=== PATIENT | female | born 1980 | race Caucasian/White ===

== ENCOUNTER 2017-03-21 12:04 | Inpatient (IN) | payer BC ==
[~2017-03-21] VITALS: Ht 167.6 cm; Wt 71.3 kg
[2017-03-21] MEDS ORDERED: PRENAT PO (12:16)
[2017-03-21] MEDS ORDERED: AMOX500T PO (12:16)
[2017-03-21] MEDS ORDERED: LABE100T39 PO (12:16)
[2017-03-21 12:17] VITALS: Ht 167.6 cm; Wt 71.3 kg
[2017-03-21 12:18] VITALS: BP 123/80; PULSE 75
[2017-03-21 14:00] LABS: ADD SCAN DIFF NO
[2017-03-21 14:02] LABS: BASOPHILS % 0.3 % (0.0-2.0); EOSINOPHILS % 0.6 % (0.0-7.0); HEMATOCRIT 34.7 % (37.0-47.0); HEMOGLOBIN 12.2 g/dl (12.0-16.0); LYMPHOCYTES # 1.4 10^3/ul (0.8-2.9); LYMPHOCYTES % 20.7 % (15.0-51.0); MEAN CORPUSCULAR HEMOGLOBIN 32.4 pg (29.0-33.0); MEAN CORPUSCULAR HGB CONC 35.2 g/dl (32.0-37.0); MEAN CORPUSCULAR VOLUME 92.3 fl (82.0-101.0); MEAN PLATELET VOLUME 9.7 fl (7.4-10.4); MONOCYTE # 0.4 10^3/ul (0.3-0.9); MONOCYTES % 6.6 % (0.0-11.0); NEUTROPHIL # 4.8 10^3/ul (1.6-7.5); NEUTROPHILS % 71.5 % (39.0-77.0); PLATELET COUNT 252 10^3/UL (140-415); RED BLOOD COUNT 3.76 10^6/ul (4.20-5.40); RED CELL DISTRIBUTION WIDTH 12.6 % (11.5-14.5); WHITE BLOOD COUNT 6.7 10^3/ul (4.8-10.8)
[2017-03-21 14:20] LABS: ALBUMIN 3.4 g/dl (3.3-4.9); BILIRUBIN,INDIRECT 0.4 mg/dl (0-1.1); BILIRUBIN,TOTAL 0.4 mg/dl (0.2-1.3); CALCIUM 9.2 mg/dl (8.4-10.2); CREATININE 0.55 mg/dl (0.44-1.00); POTASSIUM 4.4 mmol/L (3.5-5.1); TOTAL PROTEIN 6.8 g/dl (6.1-8.1); URIC ACID 5.2 mg/dl (3.1-7.9)
[2017-03-21] MEDS ORDERED: LIDOCAINE 1% (MPF) 30 ML INJ INJ PRN (17:30)
[2017-03-21] MEDS ORDERED: MISOPROSTOL 25 MCG CAPSULE PO PRN (17:30)
[2017-03-21] MEDS ORDERED: OXYTOCIN 30 UNITS/LR 500 ML IV SCH (17:30)
[2017-03-21] MEDS ORDERED: AMPICILLIN 2 GM/NS (PMX) 100 ML IV ONE (17:30)
[2017-03-21] MEDS ORDERED: CARBOPROST 250 MCG INJ IM PRN (17:30)
[2017-03-21] MEDS ORDERED: OXYTOCIN 30 UNITS/LR 500 ML IV PRN (17:30)
[2017-03-21] MEDS ORDERED: METHYLERGONOVINE 0.2 MG INJ IM PRN (17:30)
[2017-03-21] MEDS ORDERED: MISOPROSTOL 200 MCG TAB PR PRN (17:30)
[2017-03-21] MEDS ORDERED: LACTATED RINGER'S 1,000 ML IV PRN (17:30)
[2017-03-21] MEDS ORDERED: BUTORPHANOL 2 MG INJ IV PRN ×2 (17:30)
[2017-03-21] MEDS: LACTATED RINGER'S 1,000 ML IV SCH (18:33)
[2017-03-21 18:53] LABS: ADD SCAN DIFF NO
[2017-03-21 18:56] LABS: BASOPHILS % 0.1 % (0.0-2.0); EOSINOPHILS # 0.1 10^3/ul (0.0-0.5); EOSINOPHILS % 0.9 % (0.0-7.0); HEMATOCRIT 37.5 % (37.0-47.0); HEMOGLOBIN 12.5 g/dl (12.0-16.0); LYMPHOCYTES # 1.6 10^3/ul (0.8-2.9); LYMPHOCYTES % 22.4 % (15.0-51.0); MEAN CORPUSCULAR HEMOGLOBIN 31.3 pg (29.0-33.0); MEAN CORPUSCULAR HGB CONC 33.3 g/dl (32.0-37.0); MEAN PLATELET VOLUME 9.9 fl (7.4-10.4); MONOCYTE # 0.4 10^3/ul (0.3-0.9); MONOCYTES % 6.2 % (0.0-11.0); NEUTROPHILS % 70.3 % (39.0-77.0); PLATELET COUNT 248 10^3/UL (140-415); RED BLOOD COUNT 3.99 10^6/ul (4.20-5.40); WHITE BLOOD COUNT 7.1 10^3/ul (4.8-10.8)
[2017-03-21 19:11] LABS: INR 0.91; PARTIAL THROMBOPLASTIN TIME 25.8 Sec (25.0-35.0); PROTIME 12.3 Sec (12.2-14.2)
--- NOTE | 2017-03-21 20:02 | RADRPT ---
PROCEDURE: US OB. CLINICAL INDICATION: Chronic hypertension. TECHNIQUE: Multiple sonographic images of the pelvis were obtained. Transabdominal imaging only w as performed. The images were reviewed on a PACS workstation. COMPARISON: 03/18/2017. FINDINGS: Single live intrauterine is identified. Cardiac activity is present with 152 beats per mi nute. There is a vertex presentation. Measurements: BPD = 38 weeks 3 days. HC = 38 weeks 5 days. AC = 37 weeks 1 day. FL = 39 weeks 0 days. Estimated gestational age of approximately 38 weeks 2 days. The estimated date of delivery is 04/10/2017. The EFW = 3342 g which is at the 68 percentile. The placenta is the posterior fundal. There is no evidence for an abruption or placenta previa. There is a normal amount of amniotic fluid with an DOC = 18.76 cm. IMPRESSION: Single live intrauterine gestation of approximately 38 weeks 2 days. RPTAT: HMVK .Rudy Dietz MD, Date Time Electronically viewed and signed by .Rudy Dietz MD, on 03/21/2017 20:02 .K/
[2017-03-21] MEDS: MISOPROSTOL 25 MCG CAPSULE PO SCH (21:00)
[2017-03-21 22:02] LABS: ADD UMIC YES; URINE BILIRUBIN (Dip) NEGATIVE (NEGATIVE); URINE BLOOD (Dip) TRACE (NEGATIVE); URINE COLOR LT. YELLOW (YELLOW); URINE GLUCOSE (Dip) NEGATIVE (NEGATIVE); URINE KETONES (Dip) NEGATIVE (NEGATIVE); URINE LEUKOCYTE ESTERASE (Dip) NEGATIVE (NEGATIVE); URINE NITRITE (Dip) NEGATIVE (NEGATIVE); URINE TOTAL PROTEIN (Dip) NEGATIVE (NEGATIVE); URINE UROBILINOGEN (Dip) 1.0 E.U./dL (0.1-1.0)
[2017-03-21 22:30] LABS: SQUAMOUS EPITHELIAL CELL,UR MODERATE; URINE RBCS 0-2 /HPF (0)
[2017-03-21] MEDS: AMPICILLIN 1 GM/NS (PMX) 50 ML IV SCH (23:38)
[2017-03-22] MEDS: MISOPROSTOL 25 MCG CAPSULE PO SCH ×2 (01:07→05:00)
[2017-03-22] MEDS: LACTATED RINGER'S 1,000 ML IV SCH (02:22)
[2017-03-22] MEDS: AMPICILLIN 1 GM/NS (PMX) 50 ML IV SCH (02:52)
[2017-03-22] MEDS: OXYTOCIN 30 UNITS/LR 500 ML IV SCH ×2 (05:13→09:35)
--- NOTE | 2017-03-22 05:18 | LDN ---
Date/Time of Note Date/Time of Note DATE: 03/22/17 TIME: 05:15 Delivery Summary normal vaginal delivery Weeks of Gestation 38w1d Placenta Delivered: Spontaneously Meconium: none Episiotomy: No Perineal laceration: 2 Anesthesia type: Local Sponge & Needle done & correct: Yes All needle counts correct: Yes Any foreign bodies felt in the: No Problems: Infant Delivery Information Sex Sex: female Apgars 1 Minute: 8 5 Minute: 9 Suctioning Nose & mouth suctioned at bharti: Yes Delee suction performed: No Umbilical Cord Umbilical cord with: 3 Vessels Cord presentations: no nuchal cord Cord Blood was obtained: Yes Mother & Baby Disposition Disposition Mom & Baby to Maternity; Good: Yes Mom transferred to: Other () Baby to NICU: No YANET CHIU MD March 22, 2017 05:18
--- NOTE | 2017-03-22 05:32 | HP ---
Date/Time of Note Date/Time of Note DATE: 03/22/17 TIME: 05:21 OB - History Hx of Present Free Text/Dictation 36y,o was sent for induction of labor for superimposed preclmpsia with chonic hypertension on labetalol also recently treaed for uti with amoxicillin LFT abnormal [id number] ALT 186 cytotec is going merly used for induction of labor Chief Complaint: induction of labor Estimated Due Date: April 04, 2017 : 3 Para: 2 Spontaneous : 0 Therapeutic : 0 Care: Good Care Ultrasounds: Normal mid trimester US Obstetrical Complications: None, Pre-eclampsia, Other (chronic hypertension) Medical Complications: None Past Family/Social History * Past Medical, Surgical, Family and Obstetric Histories reviewed from chart. Blood Type: O+ Rubella: immune RPR/VDRL: Negative GBS Status: Negative HBsAG: Negative OB Admission Exam Vital Signs Vital Signs Vital Signs Date Time Temp Pulse Resp B/P Pulse Ox O2 Delivery O2 Flow Rate FiO2 03/21/17 12:18 97.7 75 123/80 Physical Exam HEENT: WNL Heart: Rhythm Normal Lungs: Clear, Equal Abdomen: WNL Extremities: Normal Reflexes: Normal Cervical Dilatation: other (o.5cm) Effacement: Other (40%) Station: -2 Membranes: Intact Amniotic Fluid: Unevaluable Heart Rate: 130's Accelerations: Accelerations Present Decelerations: No Decelerations Varibility: Moderate Contractions on Admission: < 5 Minutes Apart Intensity: Mild Last 72 hours Lab Results CBC & BMP 03/21/17 13:40 03/21/17 18:29 Liver Function Test 03/21/17 13:40 Alanine Aminotransferase (ALT/SGPT) 283 H Albumin 3.4 Alkaline Phosphatase 225 H Aspartate Amino Transf (AST/SGOT) 163 H Direct Bilirubin 0.00 Total Protein 6.8 OB Assessment/Plan Reason for admission: induction of labor Other Assessment: chronic hypertension , superimposed preeclampsia IUP 38w Plan: Induction Induction Method: other (cytotec) YANET CHIU MD March 22, 2017 05:31
[2017-03-22] MEDS ORDERED: BENZOCAINE 20% 56 ML SPRAY TOP PRN (06:30)
[2017-03-22] MEDS ORDERED: OXYCODONE/ASPIRIN (4.88/325) TAB PO PRN ×2 (06:30)
[2017-03-22] MEDS ORDERED: ZOLPIDEM 5 MG TAB PO PRN (06:30)
[2017-03-22] MEDS ORDERED: MISOPROSTOL 200 MCG TAB PR PRN (06:30)
[2017-03-22] MEDS ORDERED: METHYLERGONOVINE 0.2 MG INJ IM PRN (06:30)
[2017-03-22] MEDS ORDERED: LANOLIN 7 GM TUBE TOP PRN (06:30)
[2017-03-22] MEDS ORDERED: WITCH HAZEL/GLYCERIN PAD PR PRN (06:30)
[2017-03-22] MEDS ORDERED: OXYTOCIN 30 UNITS/LR 500 ML IV PRN (06:30)
[2017-03-22] MEDS ORDERED: CARBOPROST 250 MCG INJ IM PRN (06:30)
[2017-03-22] MEDS: IBUPROFEN 600 MG TAB PO SCH ×4 (07:14→23:38)
[2017-03-22 07:35] LABS: ADD SCAN DIFF NO
[2017-03-22 07:38] LABS: BASOPHILS % 0.2 % (0.0-2.0); EOSINOPHILS # 0.1 10^3/ul (0.0-0.5); EOSINOPHILS % 0.5 % (0.0-7.0); HEMATOCRIT 37.9 % (37.0-47.0); HEMOGLOBIN 12.4 g/dl (12.0-16.0); LYMPHOCYTES # 1.5 10^3/ul (0.8-2.9); LYMPHOCYTES % 11.8 % (15.0-51.0); MEAN CORPUSCULAR HEMOGLOBIN 30.9 pg (29.0-33.0); MEAN CORPUSCULAR HGB CONC 32.7 g/dl (32.0-37.0); MEAN CORPUSCULAR VOLUME 94.5 fl (82.0-101.0); MEAN PLATELET VOLUME 10.1 fl (7.4-10.4); MONOCYTE # 0.6 10^3/ul (0.3-0.9); MONOCYTES % 4.9 % (0.0-11.0); NEUTROPHIL # 10.2 10^3/ul (1.6-7.5); NEUTROPHILS % 82.2 % (39.0-77.0); PLATELET COUNT 251 10^3/UL (140-415); RED BLOOD COUNT 4.01 10^6/ul (4.20-5.40); RED CELL DISTRIBUTION WIDTH 12.7 % (11.5-14.5); WHITE BLOOD COUNT 12.4 10^3/ul (4.8-10.8)
[2017-03-22 07:55] LABS: INR 0.94; PARTIAL THROMBOPLASTIN TIME 25.9 Sec (25.0-35.0); PROTIME 12.6 Sec (12.2-14.2)
[2017-03-22 08:06] LABS: ALBUMIN 3.1 g/dl (3.3-4.9); ALBUMIN/GLOBULIN RATIO 0.91; BILIRUBIN,INDIRECT 0.5 mg/dl (0-1.1); BILIRUBIN,TOTAL 0.5 mg/dl (0.2-1.3); CALCIUM 9.2 mg/dl (8.4-10.2); CREATININE 0.53 mg/dl (0.44-1.00); POTASSIUM 3.8 mmol/L (3.5-5.1); TOTAL PROTEIN 6.5 g/dl (6.1-8.1); URIC ACID 5.6 mg/dl (3.1-7.9)
[2017-03-22 09:30] VITALS: BP 130/73; PULSE 57; RESP 18
[2017-03-22] MEDS: SENNA/DOCUSATE NA (8.6MG/50MG) TAB PO SCH ×2 (09:37→21:30)
[2017-03-22 12:50] VITALS: BP 146/67; PULSE 55; RESP 16
[2017-03-22 15:45] VITALS: BP 118/62; PULSE 55; RESP 16
[2017-03-22 20:05] VITALS: BP 112/63; PULSE 69; RESP 19
[2017-03-23 03:30] VITALS: BP 109/65; PULSE 68; RESP 19
[2017-03-23] MEDS: IBUPROFEN 600 MG TAB PO SCH ×4 (05:35→23:42)
[2017-03-23 08:00] VITALS: BP 126/80; PULSE 60; RESP 18
[2017-03-23 08:02] LABS: ADD SCAN DIFF NO
[2017-03-23 08:07] LABS: BASOPHILS % 0.2 % (0.0-2.0); EOSINOPHILS # 0.1 10^3/ul (0.0-0.5); HEMATOCRIT 35.3 % (37.0-47.0); HEMOGLOBIN 11.9 g/dl (12.0-16.0); LYMPHOCYTES # 2.3 10^3/ul (0.8-2.9); LYMPHOCYTES % 24.7 % (15.0-51.0); MEAN CORPUSCULAR HEMOGLOBIN 31.6 pg (29.0-33.0); MEAN CORPUSCULAR HGB CONC 33.7 g/dl (32.0-37.0); MEAN CORPUSCULAR VOLUME 93.6 fl (82.0-101.0); MEAN PLATELET VOLUME 10.1 fl (7.4-10.4); MONOCYTE # 0.5 10^3/ul (0.3-0.9); MONOCYTES % 5.6 % (0.0-11.0); NEUTROPHIL # 6.3 10^3/ul (1.6-7.5); NEUTROPHILS % 68.2 % (39.0-77.0); PLATELET COUNT 200 10^3/UL (140-415); RED BLOOD COUNT 3.77 10^6/ul (4.20-5.40); RED CELL DISTRIBUTION WIDTH 12.8 % (11.5-14.5); WHITE BLOOD COUNT 9.3 10^3/ul (4.8-10.8)
[2017-03-23] MEDS: SENNA/DOCUSATE NA (8.6MG/50MG) TAB PO SCH ×2 (09:20→21:04)
--- NOTE | 2017-03-23 09:38 | QN ---
Documentation Comment day 1 afebrile vitals stable with no elevated BP abdomen soft uterus firm lochia normal extremity normal Laboratory Tests Test 03/23/17 07:04 White Blood Count 9.310^3/ul Red Blood Count 3.7710^6/ul Hemoglobin 11.9g/dl Hematocrit 35.3% Mean Corpuscular Volume 93.6fl Mean Corpuscular Hemoglobin 31.6pg Mean Corpuscular Hemoglobin Concent 33.7g/dl Red Cell Distribution Width 12.8% Platelet Count 00734^3/UL Mean Platelet Volume 10.1fl Neutrophils % 68.2% Lymphocytes % 24.7% Monocytes % 5.6% Eosinophils % 1.0% Basophils % 0.2% Nucleated Red Blood Cells % 0.0/100WBC Neutrophils # 6.310^3/ul Lymphocytes # 2.310^3/ul Monocytes # 0.510^3/ul Eosinophils # 0.110^3/ul Basophils # 0.010^3/ul Nucleated Red Blood Cells # 0.010^3/ul Current Medications Medications (Trade) Dose Ordered Sig/Jesenia Route PRN Reason Start Time Stop Time Status Last Admin Dose Admin Lactated Ringer's 1,000 ml @ 125 mls/hr Q8H IV 03/21/17 17:13 03/22/17 06:29 DC 03/22/17 02:22 Ampicillin 100 ml @ 100 mls/hr ONCE ONCE IV 03/21/17 17:30 03/21/17 18:29 DC 03/21/17 19:00 Ampicillin (Ampicillin 1 Gm/ NS (Pmx)) 50 ml @ 100 mls/hr Q4H IV 03/21/17 21:30 03/22/17 06:29 DC 03/22/17 02:52 Misoprostol (Cytotec 25 Mcg Capsule) 50 mcg Q4 PRN PO LABOR INDUCTION 03/21/17 17:30 03/22/17 06:29 DC Butorphanol Tartrate (Stadol) 1 mg Q2H PRN IV PAIN 03/21/17 17:30 03/22/17 06:29 DC Butorphanol Tartrate (Stadol) 2 mg Q2H PRN IV PAIN 03/21/17 17:30 03/22/17 06:29 DC Lidocaine 30 ml 30 ml ONCE PRN INJ EPISIOTOMY/TEARING 03/21/17 17:30 03/22/17 06:29 DC Oxytocin/Lactated Ringer's 500 ml @ 125 mls/hr ONCE -MAY REPEAT X1 IV 03/21/17 17:30 03/22/17 06:29 DC 03/22/17 09:35 Oxytocin/Lactated Ringer's 500 ml @ 125 mls/hr ONCE IV 03/21/17 17:30 03/22/17 06:30 DC 03/22/17 05:25 Lactated Ringer's 1,000 ml @ 2,000 mls/hr Q30M PRN IV PRE-EPIDURAL BOLUS 03/21/17 17:30 03/22/17 06:30 DC Oxytocin/Lactated Ringer's 500 ml @ 0 mls/hr ONCE PRN IV For Hemorrhage Management 03/21/17 17:30 03/22/17 06:30 DC Methylergonovine Maleate (Methergine) 0.2 mg ONCE PRN IM VAGINAL BLEEDING 03/21/17 17:30 03/22/17 06:30 DC Carboprost Tromethamine (Hemabate) 250 mcg ONCE PRN IM VAGINAL BLEEDING 03/21/17 17:30 03/22/17 06:30 DC Misoprostol (Cytotec) 1,000 mcg ONCE PRN TX VAGINAL BLEEDING 03/21/17 17:30 03/22/17 06:30 DC Misoprostol (Cytotec 25 Mcg Capsule) 50 mcg Q4 PO 03/21/17 21:00 03/22/17 06:30 DC 03/22/17 01:07 Ibuprofen (Motrin) 600 mg Q6 PO 03/22/17 06:30 03/23/17 05:35 Oxycodone/Aspirin (Percodan) 1 tab Q3H PRN PO PAIN LEVEL 1-5 03/22/17 06:30 Oxycodone/Aspirin (Percodan) 2 tab Q3H PRN PO PAIN LEVEL 6-10 03/22/17 06:30 Zolpidem Tartrate (Ambien) 5 mg QHS PRN PO INSOMNIA 03/22/17 06:30 Senna/Docusate Sodium (Senokot-S) 1 tab BID PO 03/22/17 09:00 03/23/17 09:20 Witch Danielle/ Glycerin (Tucks Pads) 1 pad BEDSIDE MEDICATION PRN TX HEMORRHOID/EPISIOTMY PAIN 03/22/17 06:30 03/22/17 09:36 Benzocaine (Dermoplast Barrett) 1 spray BEDSIDE MEDICATION PRN TOP HEMORRHOID/EPISIOTMY PAIN 03/22/17 06:30 03/22/17 09:36 Lanolin (Dkv-U-Enpyna) 1 applic BEDSIDE MEDICATION PRN TOP BEDSIDE FOR SINTIA TO NIPPLES 03/22/17 06:30 03/22/17 09:37 Diphtheria/ Tetanus/Acell Pertussis 0.5 ml 0.5 ml ONCE ONCE IM* 03/24/17 09:00 03/24/17 09:01 Oxytocin/Lactated Ringer's 500 ml @ 0 mls/hr ONCE PRN IV For Hemorrhage Management 03/22/17 06:30 Methylergonovine Maleate (Methergine) 0.2 mg ONCE PRN IM VAGINAL BLEEDING 03/22/17 06:30 Carboprost Tromethamine (Hemabate) 250 mcg ONCE PRN IM VAGINAL BLEEDING 03/22/17 06:30 Misoprostol (Cytotec) 1,000 mcg ONCE PRN TX VAGINAL BLEEDING 03/22/17 06:30 YIN PATEL MD March 23, 2017 09:37
[2017-03-23 16:00] VITALS: BP 125/81; PULSE 62; RESP 20
[2017-03-23 18:30] VITALS: BP 135/81; PULSE 75; RESP 20
--- NOTE | 2017-03-23 19:56 | DS ---
Date/Time of Note Date/Time of Note DATE: 03/23/17 TIME: 19:51 Obstetrical Discharge Record Final Diagnosis Final Diagnosis: Term delivered Vaginal Delivery Obstetrical Delivery: Spontaneous Complications Preg induced Hypertension, Other (chronic hypertension) Induction: Yes Condition on Discharge Physical Assessment Voiding: Yes Bowel Movement: Yes Breast: Soft, non-tender Fundus: Firm Calf Tenderness: No Patient Condition: Stable JIM DELACRUZ MD March 23, 2017 19:56
[2017-03-23 20:00] VITALS: BP 121/72; PULSE 70; RESP 18
[2017-03-24 04:00] VITALS: BP 130/75; PULSE 58; RESP 18
[2017-03-24] MEDS: IBUPROFEN 600 MG TAB PO SCH ×2 (05:40→12:00)
[2017-03-24 07:30] VITALS: BP 146/77; PULSE 55; RESP 18
[2017-03-24] MEDS ORDERED: DIPHTH/TET/ACEL PERTUSS (ADULT) 0.5 ML VIAL IM* ONE (09:00)
[2017-03-24] MEDS: SENNA/DOCUSATE NA (8.6MG/50MG) TAB PO SCH (09:50)
== END 2017-03-24 13:35 | disposition home or self-care (01) | DRG 775 ==
LOC: OBT 12:04 → L-D 12:05 → OBT 17:10 → L-D 18:51 → PP1 03-22 08:49
PROVIDERS: ADMIT Obstetrics & Gynecology; ATTEND Obstetrics & Gynecology
PROC: 10E0XZZ Delivery of Products of Conception, External Approach (ICD-10-PCS; principal; 2017-03-22)
PROC: 0KQM0ZZ Repair Perineum Muscle, Open Approach (ICD-10-PCS; 2017-03-22)
DX: O70.1 Second degree perineal laceration during delivery (principal); Z37.0 Single live birth; O11.4 Pre-existing hypertension with pre-eclampsia, complicating childbirth; Z3A.38 38 weeks gestation of pregnancy
CPT/HCPCS: 76815; 80053; 81001; 81003; 84560; 85025; 85362; 85384; 85610; 85730; 86592; 86900; 86901; 90715; G0463; J0290; J2590; J7120